=== PATIENT | male | born 1950 | race Caucasian/White ===

== ENCOUNTER → 2017-07-11 | Day surgery (SDC) | payer OTHER ==
[~2017-07-11] MED LIST: ACETAMINOPHEN/HYDROcodone 325 MG/5 MG TAB ONE; BACITRACIN IM FOR SOLN 50,000 UNIT VIAL ONE; BUPIVACAINE/EPINEPHRINE 0.25% 50 ML VIAL ONE; GENTAMICIN SULFATE 80 MG/2 ML VIAL ONE; KETOROLAC TROMETHAMINE 30 MG/ML (IVP) VIAL IV PUSH ONE; MIDAZOLAM HCL 2 MG/2 ML VIAL ONE; MORPHINE SULFATE 4 MG/ML INJ ONE; ONDANSETRON HCL 4 MG/2 ML VIAL IV PUSH ONE; PROPOFOL 100 MG/10 ML INJ IV ONE; SODIUM CHLORIDE 0.9% 20 ML VIAL ONE; SODIUM CHLORIDE 0.9% 250 ML ADDBAG IV ONE; VANCOMYCIN HCL 1000 MG VIAL ONE; ceFAZolin 2 GM PREMIX 50 ML ONE; ceFAZolin INJ 1,000 MG VIAL ONE
--- NOTE | 2017-07-11 09:05 | TN ---
cc: KRISHAN JARA M.D. DATE OF SURGERY 07/11/2017 PREOPERATIVE DIAGNOSIS Right knee medial compartmental osteoarthritis, genu varus deformity. POSTOPERATIVE DIAGNOSIS Right knee medial compartmental osteoarthritis, genu varus deformity. PROCEDURE Right knee medial unicondylar arthroplasty, partial patellectomy. SURGEON Maryjane Jara MD ASSESSMENT Farheen Jolley PA-C SPECIMENS None ESTIMATED BLOOD LOSS Minimum COMPLICATIONS None ANESTHESIA General DRAINS One TOURNIQUET TIME 43-minute at 250 mmHg CONDITION Stable PLAN OF ACTIVITY Per orders. PROCEDURE My employment assistant, Samm Jara MD, was present for the entire surgical case. He was medically necessary for the entire case because of the complexity of the case. The [employer] at the back table was not a skill set for this case to manipulate the instruments. These include soft tissue retractors, trial implants, permanent plans including bone cement. The patient was brought into the operating room and had satisfactory general anesthesia by Dr. Irvin of the Department of Anesthesia. The right lower extremity was prepped and draped in the usual sterile manner. The extremity was exsanguinated by Jones wrap and tourniquet inflated to 250 mmHg. A small anterior medial exposure to the knee was made. A paramedian capsulotomy was performed. 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 Using the [employer]el[employer] unicondylar arthroplasty system, guide was used for rotation of the component and for the posterior femoral condyle removal. Approximately 8 mm were removed. A bur was then used to contour the proximal tibia to accept a #1 6.5 mm tibial component and the distal femur was contoured in terms to accept a #2 right medial femoral component. The remaining portion of the medial meniscus was removed. The anterior cruciate ligament was preserved. Trial reduction was made. The patient was found to have excellent balance in both flexion and extension. Trial implants were removed and preparation for cementing was made. One package of high viscosity Biomet bone cement was used. First the tibial component was cemented which was a #1, 6.5 mm tibial component and then a #2 femoral component was cemented, right medial #2 femoral component. All excess bone cement was removed. The bone cement was allowed to harden for 11-1/2 minutes. The tourniquet was deflated. All bleeders were coagulated. The wound was irrigated with copious amounts of sterile saline antibiotic solution. It was closed over an eighth inch Hemovac drain. The wound itself was dry. The capsule was repaired with a #2 Tycron sutures in layers with 2-0 Vicryl and the skin approximated with a running subcuticular 3-0 Vicryl. Benzoin and Steri-Strips were used. The patient tolerated the procedure well and arrived in the Recovery Room in stable and satisfactory condition. MD CHRISTIANO Ocampo/MEGAN /8:37 AM /8:56 AM
== END | disposition home or self-care (01) ==
LOC: ESDC 06:10
PROVIDERS: ATTEND Orthopaedic Surgery Orthopaedic Surgery of the Spine
DX: M17.11 Unilateral primary osteoarthritis, right knee (principal); M21.161 Varus deformity, not elsewhere classified, right knee
CPT/HCPCS: 01400; 27446; C1776; J0690; J1580; J1885; J2250; J2270; J2405; J3010; J3370